=== PATIENT | male | born 1965 | race Caucasian/White ===

== ENCOUNTER → 2018-09-25 | Outpatient (CLI) | payer BC ==
[~2018-09-25] MED LIST: ALLP300T PO; HYDR1TAB PO; LEVO250T11 PO; METH4TAB PO
--- NOTE | 2018-09-25 17:29 | Diagnostic Imaging Report ---
PROCEDURE: US left lower extremity venous. TECHNIQUE: Multiple real-time grayscale images were obtained over the left lower extremity in various projections. Additional duplex Doppler and color Doppler images were also obtained. INDICATION: Left lower extremity pain. COMPARISON STUDY: Left lower extremity venous Doppler from 05/12/2015. FINDINGS: Left lower extremity venous Doppler demonstrates no evidence of a DVT. No fluid collections are identified. IMPRESSION: Negative left lower extremity venous Doppler. Dictated by: Dictated on workstation # [id number]
== END ==
LOC: RAD 16:58
PROVIDERS: ATTEND Nurse Practitioner Family
DX: M79.652 Pain in left thigh (principal)